=== PATIENT | female | born 1985 | race Caucasian/White ===

== ENCOUNTER 2020-12-21 14:40 | Emergency (ER) | payer SELFPAY ==
[2020-12-21] MEDS ORDERED: Albuterol/Ipratropium 3.0-0.5 MG/3 ML Neb Soln NEB ONE (14:57)
[2020-12-21] MEDS ORDERED: predniSONE 20 MG Tab PO ONE (15:00)
--- NOTE | 2020-12-21 15:28 | EDM.PDOC ---
ED HPI GENERAL MEDICAL PROBLEM - General Chief Complaint: Respiratory Problem Stated Complaint: SARAI AMB Time Seen by Provider: 12/21/20 14:41 - History of Present Illness INITIAL COMMENTS - FREE TEXT/NARRATIVE: Patient is a 35-year-old female presenting to the emergency department via [facility] with complaints of asthma exacerbation. She reports that [place] she became increasingly short of breath and experienced tingling and numbness in her bilateral feet and hands as well as occasionally in her face. She has an albuterol rescue inhaler which she used 3 times a day with little relief. She denies having any wheezing at any point. Yesterday, they were hiking another location where there was excessive amounts of smoke in the air. Last evening, she reports having difficulty sleeping and feeling anxious with palpitations. Patient reports a history of anxiety for which is is being "forced into therapy" related to her dying of cancer. She does not want to take any anxiety medications as she states she gets side effects from medications easily. Denies any chest pain. She does feel short of breath at this time. She reports that she has a chronically "swollen windpipe "as a result of recurrent acid reflux. Patient states that she is currently being treated for a right-sided ear infection with ciprofloxacin eardrops. Vital signs on triage were found to be normal. Oxygen was 100% on room air, pulse 78, respiratory rate 16, blood pressure 111/63, temperature 98.5. - Related Data Allergies Allergy/AdvReac Type Severity Reaction Status Date / Time latex Allergy Severe Swelling Verified 12/21/20 14:46 scopolamine AdvReac Severe Other Verified 12/21/20 14:46 Home Meds: Home Meds Albuterol [Proventil HFA] 1 puff INH QID PRN 12/21/20 [History] Ciprofloxacin 1 each OT DAILY 12/21/20 [History] Levothyroxine 0 mcg PO ACBREAKFAST 12/21/20 [History] Montelukast Sodium [Singulair] 10 mg PO DAILY 12/21/20 [History] Pantoprazole Sodium [Protonix] 0 mg PO DAILY 12/21/20 [History] desogestreL-ethinyl estradioL [Velivet] 1 each PO DAILY 12/21/20 [History] predniSONE [Prednisone] 20 mg PO ASDIRECTED #13 tablet 12/21/20 [Rx] Past Medical History HEENT History: Reports: Impaired Vision Respiratory History: Reports: Asthma Gastrointestinal History: Reports: Gastritis, GERD, Hiatal Hernia, Irritable Bowel Syndrome, Other (See Below) Other Gastrointestinal History: Gluten Intolerance, "Lax Esophageal Sphincter" Musculoskeletal History: Reports: Fracture - Past Surgical History Musculoskeletal Surgical History: Reports: Other (See Below) Other Musculoskeletal Surgeries/Procedures:: Clavicle Surgery Social & Family History - Tobacco Use Tobacco Use Status *Q: Never Tobacco User - Caffeine Use Caffeine Use: Reports: Coffee - Recreational Drug Use Recreational Drug Use: No ED ROS GENERAL - Review of Systems Review Of Systems: Comprehensive ROS is negative, except as noted in HPI. ED EXAM, GENERAL - Physical Exam Exam: See Below Exam Limited By: No Limitations General Appearance: Alert, WD/WN, No Apparent Distress Eye Exam: Bilateral Eye: Normal Inspection Ears: Normal External Exam, Normal Canal, Hearing Grossly Normal, Normal TMs Respiratory/Chest: No Respiratory Distress, Lungs Clear, Normal Breath Sounds, No Accessory Muscle Use, Chest Non-Tender, Prolonged Expiration Cardiovascular: Normal Peripheral Pulses, Regular Rate, Rhythm, No Edema, No Gallop, No JVD, No Murmur, No Rub Neurological: Alert, Oriented, CN II-XII Intact, Normal Cognition, Normal Gait, Normal Reflexes, No Motor/Sensory Deficits Psychiatric: Normal Affect, Normal Mood Skin Exam: Warm, Dry, Intact, Normal Color, No Rash Course - Vital Signs Last Recorded V/S: Last Vital Signs Temp 98.5 F 12/21/20 14:41 Pulse 78 12/21/20 14:41 Resp 16 12/21/20 14:41 BP 111/63 12/21/20 14:41 Pulse Ox 100 12/21/20 14:59 - Orders/Labs/Meds Orders: Active Orders 24 hr Category Date Time Status RT Aerosol Therapy [RC] ASDIRECTED Care 12/21/20 14:59 Active Meds: Medications Discontinued Medications Generic Name Dose Route Start Last Admin Trade Name Freq PRN Reason Stop Dose Admin Albuterol/Ipratropium 3 ml 12/21/20 14:57 12/21/20 15:09 Albuterol/Ipratropium 3.0-0.5 Mg/3 Ml Neb Soln NEB 12/21/20 14:58 3 ml ONETIME ONE Administration Prednisone 40 mg 12/21/20 15:00 12/21/20 15:07 Prednisone 20 Mg Tab PO 12/21/20 15:01 40 mg ONETIME ONE Administration - Re-Assessments/Exams Free Text/Narrative Re-Assessment/Exam: Patient is a 35-year-old female presenting to the emergency department with complaints of asthma exacerbation. She reports that they were out hiking when she became short of breath and developed tingling in her feet, hands, and numbness in her face. She denies any wheezing, but states that she never has wheezing with her asthma. She used her rescue inhaler 3 times with no relief. On arrival to ER, she is 100% on room air. She does not appear to be any respiratory distress, however she does take deep breaths with prolonged expiration. I feel she is hyperventilating which is causing her the tingling in her hands and feet as well as intermittent numbness in her face. Lung sounds are clear to auscultation. I suspect that anxiety along with possible asthma is causing patient to feel short of breath, although she is getting adequate oxygen. Ordered DuoNeb breathing treatment and prednisone 40 mg p.o. to be given. I did discuss possible anxietylytic such as Ativan or even hydroxyzine for anxiety, however patient states that she becomes sedated easily and then she feels depressed so she would prefer not to take the medication for anxiety. 12/21/20 16:50 Patient is feeling much better after the medications given. We will discharge her home on a prescription for prednisone. Recommend follow-up with her asthma specialist when she gets back to [place]. She states that they had been wanting to put her on a daily maintenance inhaler, however she had been hesitant. Discharge instructions as documented. Departure - Departure Time of Disposition: 16:52 Disposition: Home, Self-Care 01 Condition: Good Clinical Impression: Acute asthma - Discharge Information *PRESCRIPTION DRUG MONITORING PROGRAM REVIEWED*: No *COPY OF PRESCRIPTION DRUG MONITORING REPORT IN PATIENT SERGEI: No Prescriptions: predniSONE [Prednisone] 20 mg PO ASDIRECTED #13 tablet Instructions: Asthma, Adult, [id number] Referrals: PCP,Not In Area [Primary Care Provider] - Forms: ED Department Discharge Additional Instructions: You were seen in the emergency department today for asthma exacerbation. While in the ER, you received a DuoNeb breathing treatment and prednisone which is a steroid. This improved your symptoms. You been started on a course of prednisone. Take this as prescribed. Recommend follow-up with your asthma specialist once you get home. Continue to use your rescue inhaler as needed. Sepsis Event Note (ED) - Evaluation Sepsis Screening Result: No Definite Risk - Focused Exam Vital Signs: Vital Signs Temp Pulse Resp BP Pulse Ox Pulse Ox 12/21/20 14:59 100 12/21/20 14:41 98.5 F 78 16 111/63 100 - My Orders Last 24 Hours: My Active Orders 12/21/20 14:59 RT Aerosol Therapy [RC] ASDIRECTED - Assessment/Plan Last 24 Hours: My Active Orders 12/21/20 14:59 RT Aerosol Therapy [RC] ASDIRECTED
--- NOTE | 2020-12-21 15:49 | CR ---
Chest: 2 views of the chest were obtained. Comparison: No prior chest imaging is available. Heart size and mediastinum are normal. Lungs are clear but hyperinflated. Bony structures show old left clavicle fracture with orthopedic hardware in place. Minimal scoliosis is noted within the spine. Impression: 1. Probable emphysematous change. Please correlate if patient is a smoker. 2. Nothing acute is otherwise seen. Diagnostic code #3
== END 2020-12-21 17:10 | disposition home or self-care (01) ==
LOC: JD.ED 14:40
DX: J45.909 Unspecified asthma, uncomplicated (principal); K21.9 Gastro-esophageal reflux disease without esophagitis; Z91.040 Latex allergy status; Z91.048 Other nonmedicinal substance allergy status; Z79.899 Other long term (current) drug therapy
CPT/HCPCS: 71046; 94640; 99285; J7512; 99283; J7620-GY